=== PATIENT | male | born 1975 | race Caucasian/White ===

== ENCOUNTER 2024-07-25 06:58 | Day surgery (SDC) | payer BC ==
[~2024-07-25] VITALS: Ht 182.9 cm; Wt 168.3 kg
[2024-07-25 08:47] VITALS: O2SAT 0
[2024-07-25] MEDS ORDERED: fentaNYL CITRATE/PF 100 MCG/2 ML AMP ONE (09:21)
[2024-07-25] MEDS ORDERED: SIMETHICONE 40 MG/0.6 ML ML ONE (09:21)
[2024-07-25] MEDS ORDERED: MIDAZOLAM HCL 5 MG/5 ML VIAL ONE (09:22)
[2024-07-25 15:42] VITALS: BP_SYST 133; PULSE 76; RESP 16
== END 2024-07-25 11:02 | disposition home or self-care (01) ==
LOC: SDS 06:58 → SMU 06:58 → SDS 11:02
PROVIDERS: ATTEND Internal Medicine
DX: K62.5 Hemorrhage of anus and rectum (principal); D12.5 Benign neoplasm of sigmoid colon; D12.3 Benign neoplasm of transverse colon; K64.8 Other hemorrhoids; I10 Essential (primary) hypertension; G47.33 Obstructive sleep apnea (adult) (pediatric); Z98.890 Other specified postprocedural states; Z79.899 Other long term (current) drug therapy
CPT/HCPCS: 45385; 88305; 99152; G0378; J2250; J3010